=== PATIENT | male | born 2000 | race Hispanic/Latino ===

== ENCOUNTER 2021-04-11 04:17 | Emergency (ER) | payer SELFPAY ==
[2021-04-11] MEDS ORDERED: Ketorolac Tromethamine 30 MG/ML VIAL ONE (04:46)
[2021-04-11] MEDS ORDERED: Acetaminophen 500 MG TAB ONE (04:47)
[2021-04-11 17:19] LABS: SARS-CoV-2 PCR by NAA DETECTED (NotDetected)
== END 2021-04-11 05:17 | disposition home or self-care (01) ==
LOC: MADERS 04:17
DX: U07.1 COVID-19 (principal); Z79.82 Long term (current) use of aspirin
CPT/HCPCS: 96372; 99283; J1885; U0003; U0005